=== PATIENT | female | born 1940 | race Caucasian/White ===

== ENCOUNTER → 2020-05-24 07:13 | Outpatient (CLI) | payer OTHER, SELFPAY ==
--- NOTE | ~2020-05-24 | XR_ITS ---
XR lumbar spine 2-3V DATE: 05/24/2020 07:37 INDICATION: Low back pain TECHNIQUE: AP, lateral, coned lateral lumbosacral views COMPARISON: None FINDINGS: There is moderate osteopenia. There is degenerative spurring of the lower thoracic spine. There is moderate degenerative disc disease at L1-2. There is moderately severe degenerative disc disease and mild retrolisthesis at L2-3. There is mild degenerative disc disease at L3-4, L4-5 and L5-S1. There is degenerative change at the apophyseal joints of the lumbar and lumbosacral area. There is as sociated minimal anterolisthesis at L4-5. No fracture or bone destruction is evident. The lumbar pedicles are intact. The sacroiliac joints are unremarkable. There are a couple of rounded calcifications overlying the right upper quadrant, consistent with gall stones demonstrated on 06/08/2012 CT abdomen examination. Surgical clips overlie both sides of the pelvis. There is extensive calcification of the abdominal aorta and iliac arteries; no evidence of abdominal aortic aneurysm. IMPRESSION: Degenerative changes of the lower thoracic and lumbar spine Moderate osteopenia Cholelithiasis Reviewed, dictated and finalized at location B. 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
== END ==
PROVIDERS: PCP Internal Medicine; Visit Provider Nurse Practitioner
DX: M85.88 Other specified disorders of bone density and structure, other site (principal); K80.20 Calculus of gallbladder without cholecystitis without obstruction; M51.36 Other intervertebral disc degeneration, lumbar region; M51.34 Other intervertebral disc degeneration, thoracic region
CPT/HCPCS: 72100

== ENCOUNTER 2020-06-26 10:30 | Outpatient (RCR) | payer OTHER, SELFPAY ==
--- NOTE | 2020-06-15 09:50 | PTOPEVAL ---
Thank you for referring Kerri Wilkes to [facility].? The patient is scheduled to be seen for therapy? 1 x/week for 8 weeks. Please review, sign, date and return this plan of care MILLICENT. I agree with and certify that the following plan of care is medically necessary. Referring Physician Date Attending Provider: YULIANA ZayasC Referring Provider: *PT Outpatient Evaluation Start: 06/15/20 08:24 Freq: Status: Active Protocol: Document 06/15/20 08:25 MARGARITA (Rec: 06/15/20 09:26 MARGARITA [id number]) Therapy Assessment Status Assessment Status Assessment Status Evaluation Outpatient Past Medical History Past Medical History Source of Past Medical History Patient,Recalled from Previous Visit, Confirmed with Patient /Family Cardiovascular History Hx Hypertension Yes Respiratory History Hx Asthma Yes Musculoskeletal History Hx Back Pain Yes Hx Fractures Yes: right tibia fracture- 7-8 yrs ago Endocrine History Hx Diabetes Yes Evaluation Information Problem Diagnosis low back pain Onset May 06 Cause unknown Subjective Information She reports her pain started Query Text:As Reported By Patient/ for no reason. She has had Family pain in the past and was improved with a shot. She was referred to ortho MD,but shot not performed due to back not painful on the day of her visit. Pt reports right low back pain with radiating symptoms into right hip. She was given muscle relaxors, but is unable to indicate if helping. She will have increased pain with walking, standing, lifting activities. States when things hurt every activity is painful and limited. But she is not always painful. Pain Assessment Timing of Pain Assessment Timing of Pain Assessment Assessment Pain Scale Pain Scale Used Numeric (1 - 10) Self Report Pain Assessment Right Lower Back Reported Pain Level 1 Pain Description Aching,Radiating,Tightness Pain Radiation Right Leg Pain Frequency Intermittent Lowest Pain Intensity
--- NOTE | 2020-07-09 09:19 | PCPTNOTE ---
Patient did not show up for scheduled appointment this date. Called spoke with patient and she stated she ws sorry, but, she forgot.
--- NOTE | 2020-07-25 14:26 | PCPTNOTE ---
Admitting Provider: Attending Provider: Cindy Arroyo, YULIANAC Patient:Kerri Wilkes Date of :1940 Discharge Note Patient has not returned for any further treatments since 06/26/2020, therefore she will be discharged at this time. Patient?s initial visit was on 06/15/2020 08:30 and she had a total of 3 visits. The goals have been no met due to limited therapy visits attended. Thank you for referring this patient to [facility]. Please review, sign, date and return this discharge summary MILLICENT. I have been updated about the patient's current status and I agree with discharge from the above service at this time. Referring Physician Date
== END 2020-07-25 14:43 | disposition home or self-care (01) ==
LOC: ANHPT 10:30
PROVIDERS: PCP Internal Medicine; Visit Provider Nurse Practitioner
DX: M54.5 Low back pain (principal)
CPT/HCPCS: 97110; 97112; 97140; 97162

== ENCOUNTER → 2021-04-08 10:08 | Outpatient (CLI) | payer OTHER, SELFPAY ==
--- NOTE | ~2021-04-08 | XR_ITS ---
XR sacrum coccyx min 2V DATE: 04/08/2021 10:28 INDICATION: Sacrococcygeal disorder TECHNIQUE: AP, angled AP and lateral views of the sacrococcyx COMPARISON: None FINDINGS: There is diffuse osteopenia. There is grade 1 anterolisthesis at L4-5 due to degenerative change at the apophyseal joints. The pubic symphysis and sacroiliac joints are intact. No sacral or coccygeal fracture or bone destruc tion is detected. There is prominent calcification of the distal abdominal aorta and common iliac arteries. IMPRESSION: Osteopenia Reviewed, dictated and finalized at location A. IMPRESSION: Osteopenia
== END ==
PROVIDERS: PCP Internal Medicine; Visit Provider Nurse Practitioner
DX: M53.3 Sacrococcygeal disorders, not elsewhere classified (principal); M85.88 Other specified disorders of bone density and structure, other site
CPT/HCPCS: 72220

== ENCOUNTER 2022-03-11 14:45 | Outpatient (CLI) | payer OTHER, SELFPAY ==
--- NOTE | ~2022-03-11 | MM_ITS ---
EXAMINATION: MM screening holly BI w tanja HISTORY: Screening mammogram TECHNIQUE: Craniocaudal and mediolateral oblique 3-D tomosynthesis images were obtained and synthetic 2-D images were generated. CAD analysis was submitted and interpreted. COMPARISON: , bilateral screening mammogram examinations BREAST PARENCHYMAL COMPOSITION: The breasts are almost entirely fatty. FINDINGS: There is no evidence of suspicious mass, calcification, or architectural distortion to sugg est malignancy in either breast. There has been no suspicious interval change. IMPRESSION: 1. No mammographic evidence of malignancy. 2. Recommend routine screening mammography in one year. BI-RADS Category 1: Negative Reviewed, dictated and finalized at location A.
== END 2022-03-11 14:46 | disposition home or self-care (01) ==
PROVIDERS: PCP Internal Medicine; Visit Provider Nurse Practitioner
DX: Z12.31 Encounter for screening mammogram for malignant neoplasm of breast (principal)
CPT/HCPCS: 77063; 77067

== ENCOUNTER 2024-01-28 12:17 | Outpatient (CLI) | payer OTHER, SELFPAY ==
--- NOTE | 2024-01-28 12:33 | ECHO_ITS ---
Patient Info Name: Kerri Wilkes Age: 84 years : 1940 Gender: Female Ht: 62 in Wt: 165 lbs BSA: 1.84 m2 HR: 85 bpm Heart Rhythm: Sinus Rhythm Technical Quality: Good Exam Date: 01/28/2024 12:47 PM Exam Location: Echo Lab Patient Status: Outpatient Admit Date: 01/28/2024 Staff Ordering Physician: Santi Ponce MD Data Transcriber: Aram Garcia RDCS Attending Provider: Santi Ponce MD Referring Physician: Kris LABOY; Exam Type: CA echo doppler color flow Study Info Indications - other chest pain Complete two-dimensional, color flow and Doppler transthoracic echocardiogram is performed. Summary 1. Complete two-dimensional, color flow and Doppler transthoracic echocardiogram is performed. 2. Left ventricular chamber dimension is normal. 3. Left ventricular systolic function is normal, estimated at 60-65%. 4. The left ventricular diastolic function is grade I diastolic dysfunction. 5. E/e' 17 is elevated. 6. Left atrial chamber dimension is mildly enlarged. 7. There is moderate aortic valve sclerosis. 8. There is moderate aortic valve stenosis with a peak velocity of 295 cm/s, mean gradient of 23 mmHg, and aortic valve area of 1.1 cm2. 9. The mitral valve has moderately calcified annulus. 10. There is trace mitral valve regurgitation. 11. No pulmonary hypertension, estimated pulmonary arterial systolic pressure is 32 mmHg. Left Ventricle E/e' 17 is elevated. Left ventricular chamber dimension is normal. Left ventricular systolic function is normal, estimated at 60-65%. The left ventricular diastolic function is grade I diastolic dysfunction. Right Ventricle Right ventricular systolic function is normal and with normal TAPSE 2.7 cm. Right ventricular chamber dimension is normal. Left Atria Left atrial chamber dimension is mildly enlarged. Right Atria Right atrial chamber dimension is normal. Aortic Valve The aortic valve is not well visualized. There is moderate aortic valve sclerosis. There is moderate aortic valve stenosis with a peak velocity of 295 cm/s, mean gradient of 23 mmHg, and aortic valve area of 1.1 cm2. There is no aortic valve regurgitation. Pulmonic Valve There is no pulmonic regurgitation. Mitral Valve The mitral valve has moderately calcified annulus. There is no mitral valve stenosis. There is trace mitral valve regurgitation. Tricuspid Valve There is no tricuspid valve regurgitation. No pulmonary hypertension, estimated pulmonary arterial systolic pressure is 32 mmHg. Pericardium/Pleural There is no pericardial effusion. Inferior Vena Cava Normal inferior vena cava with >50% collapse upon inspiration consistent with normal right atrial pressure, 5 mmHg. Aorta The aortic root size at the sinus of Valsalva is normal. Left Ventricular Outflow Tract Name Value Normal LVOT 2D LVOT Diameter 1.7 cm LVOT Doppler LVOT Peak Gradient 6 mmHg LVOT Mean Gradient 3 mmHg LVOT VTI 42 cm LVOT VTI/AV VTI Ratio 0.5 LVOT Stroke Volume 92 ml LVOT CO 7.9 l/min LVOT CI
== END 2024-01-28 12:18 | disposition home or self-care (01) ==
PROVIDERS: PCP Family Medicine; Visit Provider Family Medicine
DX: R07.89 Other chest pain (principal); I35.8 Other nonrheumatic aortic valve disorders
CPT/HCPCS: 93306

== ENCOUNTER 2025-03-02 07:14 | Outpatient (CLI) | payer OTHER, SELFPAY ==
--- NOTE | 2025-03-02 07:59 | ECHO_ITS ---
Patient Info Name: Kerri Wilkes Age: 85 years : 1940 Gender: Female Ht: 62 in Wt: 160 lbs BSA: 1.81 m2 HR: 59 bpm BP: 132 / 72 mmHg Technical Quality: Good Exam Date: 03/02/2025 8:18 AM Patient Status: O Admit Date: 03/02/2025 Exam Type: CA echo dop color flow w con Complete two-dimensional, color flow and Doppler transthoracic echocardiogram is performed with contrast to opacify the left ventricle and to improve the deliniation of the left ventricle endocardial borders. Family Readiness Support Assistant: Joanna Arnold Attending Provider: Aly Zhou DO Contrast/Agitated Saline Contrast/Ag. Saline: Definity Amount: 2.00 ml Administered By: Joanna Arnold Summary 1. Definity contrast administered improved wall motion interpretation. 2. Left ventricular chamber dimension is mildly enlarged. 3. Left ventricular systolic function is normal, estimated at 55-60. 4. The left ventricular diastolic function is grade I diastolic dysfunction. 5. E/e' 18 is elevated. 6. Left atrial chamber dimension is moderately enlarged. 7. There is severe aortic valve sclerosis. 8. There is severe aortic valve stenosis with a peak velocity of 421 cm/s, mean gradient of 42 mmHg, and aortic valve area of 0.8 cm2. 9. The mitral valve has a moderately calcified annulus. 10. There is mild to moderate mitral valve regurgitation. 11. There is trace tricuspid valve regurgitation. 12. No pulmonary hypertension, estimated pulmonary arterial systolic pressure is 31 mmHg. 13. There is trace pulmonic regurgitation. Left Ventricle Definity contrast administered improved wall motion interpretation. Left ventricular chamber dimension is mildly enlarged. Left ventricular systolic function is normal, estimated at 55-60. The left ventricular diastolic function is grade I diastolic dysfunction. E/e' 18 is elevated. Right Ventricle Right ventricular chamber dimension is normal. Right ventricular systolic function is normal and with normal TAPSE 2.0 cm. Left Atria Left atrial chamber dimension is moderately enlarged. Right Atria Right atrial chamber dimension is normal. Aortic Valve The aortic valve is probable trileaflet. There is severe aortic valve sclerosis. There is severe aortic valve stenosis with a peak velocity of 421 cm/s, mean gradient of 42 mmHg, and aortic valve area of 0.8 cm2. There is no aortic valve regurgitation. Pulmonic Valve There is trace pulmonic regurgitation. Mitral Valve The mitral valve has a moderately calcified annulus. There is no mitral valve stenosis. There is mild to moderate mitral valve regurgitation. Tricuspid Valve There is trace tricuspid valve regurgitation. No pulmonary hypertension, estimated pulmonary arterial systolic pressure is 31 mmHg. Pericardium/Pleural There is no pericardial effusion. Inferior Vena Cava Normal inferior vena cava with >50% collapse upon inspiration consistent with normal right atrial pressure, 5 mmHg. Aorta The aortic root size at the sinus of Valsalva is normal. Left Ventricular Outflow Tract Name Value Normal LVOT 2D LVOT Diameter 1.8 cm LVOT Doppler LVOT Peak Velocity 125 cm/s LVOT Peak Gradient 6 mmHg LVOT Mean Gradient 4 mmHg LVOT VTI 36 cm LVOT VTI/AV VTI Ratio 0.3 LVOT Stroke Volume 97 ml LVOT CO 6.1 l/min LVOT CI 3.4 l/min/m2 Pulmonic Valve Name Value Normal RVOT Doppler RVOT Peak Velocity 93 cm/s RVOT Peak Gradient 3 mmHg PV Doppler PV Peak Velocity 147 cm/s PV Peak Gradient 9 mmHg Mitral Valve Name Value Normal MV Diastolic Function MV E Peak Velocity 110 cm/s MV A Peak Velocity 151 cm/s MV E/A 0.7 MV Decel Time (PW) 348 ms MV Annular TDI MV E/e' (Septal) 20.9 MV E/e' (Lateral) 16.4 MV E/e' (Average) 18.6 Tricuspid Valve Name Value Normal TV Regurgitation Doppler TR Peak Velocity 254 cm/s TR Peak Gradient 26 mmHg Estimated PAP/RSVP RA Pressure 5 mmHg <=5 PA Systolic Pressure 31 mmHg <36 RV Systolic Pressure 31 mmHg <36 Aortic Valve Name Value Normal AV Doppler AV Peak Velocity 421 cm/s AV Peak Gradient 67 mmHg AV Mean Gradient 42 mmHg AV VTI 118 cm AV Area (Cont Eq VTI) 0.8 cm2 >=3.0 AV Area (Cont Eq Narayan) 0.8 cm2 AV DI (Narayan) 0.30 AV Regurgitation 2D LVOT Area 2.7 cm2 Ventricles Name Value Normal LV Dimensions 2D/MM IVS Diastolic Thickness (2D) 0.9 cm 0.6-1.0 LVID Diastole (2D) 5.3 cm 3.8-5.2 LVIW Diastolic Thickness (2D) 0.8 cm 0.6-0.9 LVID Systole (2D) 3.9 cm 2.2-3.5 LVOT Diameter 1.8 cm LV Mass (2D Cubed) 149.77 g 67.00-162.00 LV Mass Index (2D Cubed) 83 g/m2 43-95 Relative Wall Thickness (2D) 0.28 <=0.42 LV Fractional Shortening/Ejection Fraction 2D/MM LV Fractional Shortening (2D) 27 % 27-45 LV EF (2D Teichholz) 52 % LV Diastolic Volume (4C MOD) 121 ml LV EF (4C MOD) 48 % LV Diastolic Volume (2C MOD) 131 ml LV EF (2C MOD) 57 % LV Diastolic Volume (BP MOD) 128 ml 46-106 LV Diastolic Volume Index (BP MOD) 71 ml/m2 29-61 LV Systolic Volume (BP MOD) 60 ml 14-42 LV Systolic Volume Index (BP MOD) 33 ml/m2 8-24 LV EF (BP MOD) 53 % 54-74 LV Diastolic Length (4C) 8.0 cm LV Systolic Length (4C) 7.1 cm LV Stroke Volume (4C MOD) 58 ml Atria Name Value Normal LA Dimensions LA Volume (4C A-L) 69 ml LA Volume (BP A-L) 69 ml RA Dimensions RA Systolic Major Davenport Length (4C) 5.4 cm 2.2-2.8 RA Area (4C) 16.9 cm2 <=18.0 Report Signatures
[2025-03-02] MEDS: PERFLUTREN LIPID MICROSPHERES 1.5 ML VIAL DILUTED TO 10 ML TOTAL VOLUME IV PUSH (09:30)
--- NOTE | 2025-03-02 09:30 | IVDEFINITY ---
Prior to administration of IV Definity the patient was educated on the risks and benefits of the imaging enhancing agent including potential adverse side effects. The patient verbalized understanding. Allergies were verified. No exclusion criteria were identified and at least one of the following inclusion criteria were met: 1) physician request, 2) patient technically difficult to image (per the [place] [employer]chocardi[employer] guidelines of two or more segments not discernable within the apical view), or 3) questionable left ventricular function. ?
== END 2025-03-02 07:15 | disposition home or self-care (01) ==
PROVIDERS: PCP Family Medicine; Visit Provider Internal Medicine Cardiovascular Disease
DX: I35.0 Nonrheumatic aortic (valve) stenosis (principal); I34.0 Nonrheumatic mitral (valve) insufficiency; I35.1 Nonrheumatic aortic (valve) insufficiency
CPT/HCPCS: C8929; Q9957

== ENCOUNTER 2025-03-21 00:26 | Day surgery (SDC) | payer OTHER, SELFPAY ==
[2025-03-20 12:59] VITALS: BMI 28.4
[2025-03-21] VITALS (8 sets, daily range): BP systolic 122–179; BP diastolic 52–92; PULSE 67–98; RESP 14–21; TEMP 36.4; O2SAT 96–100
--- NOTE | 2025-03-21 | ECHO_ITS ---
Patient Info Name: Kerri Wilkes Age: 85 years : 1940 Gender: Female Ht: 62 in Wt: 155 lbs BSA: 1.78 m2 Technical Quality: Good Exam Date: 03/21/2025 7:58 AM Patient Status: unknown Admit Date: 03/21/2025 Exam Type: CA echo transesophageal Complete two-dimensional, color flow and Doppler transesophageal study is performed. Stripper Apprentice: Olga Brito Attending Provider: Aly Zhou DO Summary 1. Left ventricular systolic function is normal with an ejection fraction of 60-65% by visual estimation. 2. There is moderate concentric increased left ventricular wall thickness. 3. The left ventricular diastolic function is indeterminate as it was not assessed. 4. Left atrial chamber dimension is moderately enlarged. 5. There is severe aortic valve sclerosis. 6. There is severe aortic valve stenosis, measured at 0.7 cm2 by planimetry. 7. There is mild mitral valve regurgitation. 8. There is trace tricuspid valve regurgitation. 9. There is trace pulmonic regurgitation. Procedure Details Risks/benefits/alternative to SHUN discuss with patient and she gave informed consent. Patient monitored electrocardiographically, vitals, pulse ox. She was in sinus rhythm, HR 70 bpm, BP 130/80 mmHg, pulse ox 99%. Cetacaine spray x 1 to posterior oropharynx. Versed 2 mg and Fentanyl 25 mcg IV given for conscious sedation. She swallowed probe without incident. Multiple images obtained. Agitated saline injection. SHUN withdrawn and no blood noted on SHUN probe tip. She tolerated procedure well with no complications. Left Ventricle Left ventricular chamber dimension is normal. There is moderate concentric increased left ventricular wall thickness. Left ventricular systolic function is normal with an ejection fraction of 60-65% by visual estimation. The left ventricular diastolic function is indeterminate as it was not assessed. Right Ventricle Right ventricular chamber dimension is normal. Right ventricular systolic function is normal. Left Atria Left atrial chamber dimension is moderately enlarged. Right Atria Right atrial chamber dimension is normal. Atrial Septum Intact interatrial septum visualized by 2D, color flow and agitated saline imaging. Agitated saline injection opacified right side cardiac chambers without shunt to left side cardiac chambers. Atrial Appendage There is no thrombus visualized in the left atrial appendage. Aortic Valve The aortic valve is trileaflet. There is severe aortic valve sclerosis. There is severe aortic valve stenosis, measured at 0.7 cm2 by planimetry. There is no aortic valve regurgitation. Pulmonic Valve There is trace pulmonic regurgitation. Mitral Valve There is no mitral valve stenosis. There is mild mitral valve regurgitation. Tricuspid Valve There is trace tricuspid valve regurgitation. RVSP is not measured. Pericardium/Pleural There is no pericardial effusion. Inferior Vena Cava Inferior vena cava is not well visualized. Aorta The aortic root size at the sinus of Valsalva is normal. Report Signatures
[2025-03-21] MEDS: fentaNYL CITRATE INJ (*CRX) 100 MCG/2 ML VIAL 25 MCG IV PUSH (08:10)
[2025-03-21] MEDS: MIDAZOLAM HCL (*CRX) 2 MG/2 ML VIAL IV PUSH (08:10)
== END 2025-03-21 09:15 | disposition home or self-care (01) ==
PROVIDERS: PCP Family Medicine; Visit Provider Internal Medicine Cardiovascular Disease
PROC: (CPT 93312; principal; 2025-03-21 08:00)
DX: I35.0 Nonrheumatic aortic (valve) stenosis (principal); I35.8 Other nonrheumatic aortic valve disorders; I34.0 Nonrheumatic mitral (valve) insufficiency; E11.9 Type 2 diabetes mellitus without complications; I10 Essential (primary) hypertension; E78.5 Hyperlipidemia, unspecified; Z79.82 Long term (current) use of aspirin; Z79.51 Long term (current) use of inhaled steroids; Z79.84 Long term (current) use of oral hypoglycemic drugs; Z87.891 Personal history of nicotine dependence; Z80.0 Family history of malignant neoplasm of digestive organs; Z82.49 Family history of ischemic heart disease and other diseases of the circulatory system
CPT/HCPCS: 93312; 93320; 93325; J2250; J3010; J7040

== ENCOUNTER 2025-03-27 00:56 | Day surgery (SDC) | payer OTHER, SELFPAY ==
--- OUTSIDE RECORDS SUMMARY | 2009-11-20 09:00 | XMS_ITS | Continuity of Care Document ---
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 Name Role Phone Heather Taylor Unavailable Unavailable Procedures Procedure Date Office/outpatient Visit, Est Office/outpatient Visit, Est Eye Exam & Treatment Eye Exam & Treatment Advance Directives Directive Yes / No Effective Date File Name No Information Encounters Encounter Description Practice Location Reason(s) For Visit Diagnoses Date Provider Providers Copied on Encounter Office/outpat ient Visit, [facility] [address] [place] [address] [address], [place], [place], [id number], tel:[phone] [facility] No Information 8-201 0 Claudia Sheridan [address] , [address], [place], [place], [facility], . tel:[phone] Office/outpat ient Visit, [facility], [address] [place] [address] [address], [place], [place], [id number], [place] tel:[phone] [facility] No Information 7200 9 Claudia Sheridan [address] , [address], [place], [place], [facility], . tel:[phone] [facility], [address] [place] [address] [address], [place], [place], [id number], tel:[phone] [facility] No Information Mar-2 1-200 8 Claudia Romero. [address] , [address], [place], [address], [place]. tel:[phone] [facility], [address], [place], [place], [id number], [place] tel:[phone] [facility] No Information Sep-2 0-200 7 Clauida Romero. [address] [facility] , [address], [place], [address], [place]. tel:[phone] Family History Family Member Type Diagnosis Age At Onset No Information Payers Payer name Insurance type Covered green party ID Authoriza trini(s) [employer] [id number] Written Social History Type Description Quantity Date Captured Comments Sex Female Smoking Status No Information Chief Complaint And Reason For Visit No Information Reason For Referral Reason For Referral No Information History Of Present Illness Encounter Date Complaint History Of Prese nt Illness No Information Functional Status Date Functional Assessmen t No Information Instructions Date Instruction Additional Infor mation No Information Assessments Type Assessment Date No Information Patient Care Teams Name Effective Dates (start - stop) Status Members No Information
[2025-03-24 14:41] VITALS: BMI 28.2
[2025-03-27] VITALS (12 sets, daily range): BP systolic 136–169; BP diastolic 59–94; PULSE 54–72; RESP 13–19; TEMP 36.7; O2SAT 94–99; BMI 28.2
--- OUTSIDE RECORDS SUMMARY | 2025-03-27 00:59 | XMS_ITS | Clinical Summary ---
Author Organization 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 Role Phone Unavailable Primary Care Provider Unavailabl e Social History Tobacco Use Types Packs/Day Years Used Date Smoking Tobacco: Never Assessed Comments Unknown Sex and Gender Information Value Date Recorded Sex Assigned at Not on file Legal Sex Female 7:04 PM CDT Gender Identity Not on file Sexual Orientation Not on file Plan of Treatment Health Maintenance Due Date Last Done Comments DTaP, Tdap and Td Vaccines ( 1 - Tdap) 1959 Pneumococcal Vaccine: 50+ Ye ars (1 of 1 - PCV) 01/16/1988 Zoster Vaccines (1 of 2) 01/16/1988 RSV Immunization or 60+ Years (1 - 1-dose 75+ series) 2013 COVID-19 Vaccine ( - 2023-2 5 season) 2025 Meningococcal B Vaccine Aged Out No l onger eligible based on patient's age to complete this topic Meningococcal Vaccine Aged Out No keila tiarra eligible based on patient's age to complete this topic RSV Immunizations Under 20 Months Aged Out No longer eligible based on patient's age to complete this topic
--- OUTSIDE RECORDS SUMMARY | 2025-03-27 00:59 | XMS_ITS | Clinical Summary ---
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 Gender Identity Not on file Sexual Orientation Not on file Plan of Treatment Health Maintenance Due Date Last Done Comments Hepatitis C Virus (HCV) Screening 1940 TdaP Immunization 1940 Pneumococcal Immunization (50+ years) (1 of 1 - PCV) 01/16/1988 Zoster Immunization (1 of 2) 01/16/1988 Respiratory Syncytial Virus (RSV) Immunization (Adult) (1 - 1-dose 75+ series) 2013 SARS-COV-2 Immunization ( - season) 2024 Influenza Immunization (#1) 03/06/202511/2019, 04/11/2019, 04/07/2018, Additional history exists Hepatitis B Immunization Aged Out No longer eligible based on patient's age to complete this topic Human Papillomavirus (HPV) Immunization Aged Out No longer eligible based on patient's age to complete this topic Meningococcal Immunization (ACWY) Aged Out No longer eligible based on patient's age to complete this topic Rotavirus Immunization Aged Out No lo nger eligible based on patient's age to complete this topic
[2025-03-27 08:43] LABS: Hematocrit 41.2 % (37.0-47.0); Hemoglobin 13.3 g/dL (12.0-15.0); Immature Granulocyte Percent A 0.5 % (0-0.5); Lymphocytes Absolute Auto 1.43 K/mm3 (0.9-3.2); Mean Corpuscular HGB Conc 32.3 g/dl (32-36); Mean Corpuscular Hemoglobin 29.2 pg (26-34); Mean Corpuscular Volume 90.5 fl (80-100); Nucleated Red Blood Cells Absolute Auto 0.000 K/mm3 (0.0-0.012); Nucleated Red Blood Cells Perc 0.0 % (0.0-0.2); Platelet Count Result 223 k/mm3 (150-375); Red Blood Count 4.55 M/mm3 (4.2-5.4); White Blood Count 7.5 K/mm3 (4.5-10.0)
--- NOTE | 2025-03-27 08:48 | WPDHPUPDATE1 ---
History and Physical Update Update Date/Time: 03/27/25 08:48 History and Physical has been reviewed, including an updated exam of the patient. There are NO changes in the patient's condition. Risks, benefits, and alternatives have been discussed and questions answered. Patient agrees to proceed with procedure.
--- NOTE | 2025-03-27 08:48 | WPDMODSED ---
Moderate Sedation Note-Pt Data Patient Data Allergies Allergy/AdvReac Type Severity Reaction Status Date / Time niacin Allergy Unknown Rash Verified 03/27/25 08:22 Penicillins Allergy Unknown Hives Verified 03/27/25 08:22 Home Medications ?Medication ?Instructions ?Recorded ?Confirmed ?Type blood sugar diagnostic (OneTouch #25 ea 04/25/22 03/07/25 Rx Verio test strips) blood-glucose meter (Contour Next #1 ea 05/14/22 03/07/25 Rx EZ Meter kit) aspirin 325 mg tablet 325 mg PO DAILY 12/11/22 03/27/25 History diphenhydramine HCl 25 mg capsule 25 mg PO QHS 12/11/22 03/27/25 History (Benadryl) triamcinolone acetonide 0.1 % 1 applic topical BID #454 grams 10/12/23 03/27/25 Rx topical cream albuterol sulfate 90 mcg/actuation See Rx Instructions .Route 02/12/24 03/27/25 Rx aerosol inhaler .COMPLEX #6.7 ea ezetimibe 10 mg tablet See Rx Instructions .Route 10/18/24 03/27/25 Rx .COMPLEX #90 tabs blood sugar diagnostic (Contour #50 ea 10/31/24 03/07/25 Rx Next Test Strips) tizanidine 4 mg tablet See Rx Instructions .Route 01/06/25 03/27/25 Rx .COMPLEX #90 tabs lisinopril 20 See Rx Instructions .Route 01/08/25 03/27/25 Rx mg-hydrochlorothiazide 12.5 mg .COMPLEX #90 tabs tablet diltiazem HCl 180 mg See Rx Instructions .Route 03/21/25 Rx capsule,extended release 24 hr .COMPLEX #90 caps metformin 1,000 mg tablet See Rx Instructions .Route 03/21/25 03/27/25 Rx .COMPLEX #90 tabs montelukast 10 mg tablet See Rx Instructions .Route 03/21/25 03/27/25 Rx .COMPLEX #90 tabs potassium chloride 10 mEq See Rx Instructions .Route 03/21/25 03/27/25 Rx tablet,extended release .COMPLEX #180 tabs Sedation/Anesthesia: No previous sedation/anesthesia problems (including family history). [facility] Past Medical History Medical History Postmenopausal Screening for breast cancer Weight loss Family History Family History Mother Hypertension, Onset Age: 75 Family history of gastrointestinal disorder Patient's mother is Cerebrovascular accident Sibling Carcinoma of colon Family history of coronary artery disease, Onset Age: 70 Patient's sister is Family history of cardiovascular disease Family history of malignant neoplasm Family history of heart disease in male family member before age 55 Patient's brother is Father Patient's father is Family history of malignant neoplasm Other Diabetes mellitus Family history of lupus erythematosus Social History Social History Smoking packs per day: 1 Smoking cigarettes per day: 20.0 Years smoked: 20 Smoking pack-years: 20.00 Smoking status: Former smoker Tobacco type: cigarettes Second hand tobacco smoke exposure: No Smoking end date: 07/06/84 Alcohol intake: never Substance use: unknown Substance use type: does not use Lack of Transportation: No Lack of Food: Never True Current Housing: I Have Housing Concerned About Future Housing: No Difficulty Paying Gas/Electric Bills: No Difficulty Paying for Meds: No Currently Unemployed: No Education: High School Diploma/GED Difficulty w/ Childcare or Family Care: No Living arrangements: alone Occupation/Education: retired Gender identity (if verbalized by the patient): Female Sexual Orientation (if Verbalized by the Patient): Straight or Heterosexual Spiritual care concerns: No Mod Sed Physical Exam Physical Exam Pre Procedural Exam: Normal: Lungs, Heart Size, Heart Rate and Heart Rhythm Hours since solid foods: 12 Hours since liquid intake: 12 Mallampati Classification: class II Internal Medicine - PN: Obj Da Vital Signs Vital Signs: Vital Signs - 24 hr 03/27/25 08:28 Temperature 36.7 C Pulse Rate 70 Respiratory Rate 18 Blood Pressure 161/61 H Pulse Oximetry 96 Oxygen Delivery Room Air Labs 03/27/25 08:34 03/27/25 08:34 ASA Classification/Sedation ASA Classification/Sedation ASA Class: III Emergent: No Risks: Risks, benefits and alternatives explained and patient/family accepted plan for sedation. Patient re-evaluated immediately prior to sedation.
[2025-03-27 08:56] LABS: Anion Gap 6 mmol/L (4-12); Blood Urea Nitrogen 12 mg/dL (7-17); Calcium 9.7 mg/dL (8.4-10.2); Carbon Dioxide 26 mmol/L (22-30); Chloride 102 mmol/L (98-107); Estimated CRCL calculation 33 ml/min; Estimated Glomerular Filt Rate 55; Glucose 91 mg/dL (65-110); Potassium 4.4 mmol/L (3.4-5.0); Sodium 134 mmol/L (137-145)
--- NOTE | 2025-03-27 10:45 | P.PCNCC_ITS ---
Cardiac Cath Procedure Note Date of procedure:: 03/27/25 Performing physician:: CATHETERIZATION LABORATORY REPORT Procedure Date: 03/27/2025 Referring Physician: Dr. Zhou Anesthesia: Versed and Fentanyl were ordered and given in my presence at 1007, procedure ended at 1036. Supervision of nurse, Romero Dickson monitored moderate sedation with 2mg Versed and 100mcg Fentanyl was provided for 29 minutes. Pre-op Diagnosis: Severe aortic stenosis Post-op Diagnosis: Severe aortic stenosis Procedure(s): Left heart catheterization with coronary angiography Right heart catheterization Access Site: Right radial artery Right Brachial vein Brief History and Clinical Indications: All risks, benefits and alternatives to left heart catheterization with or without percutaneous coronary intervention was discussed at length with the patient. Risk of complications including but not limited to bleeding, infection, arrhythmia, stroke, worsening kidney function, blood loss, groin hematoma, limb loss, emergency coronary artery bypass grafting, and even were discussed with the patient and all questions were answered. The patient understood and wished to proceed. 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 Findings: LEFT HEART CATHETERIZATION FINDINGS: 1. Left main: The left main coronary artery is widely patent without any significant obstructive disease. 2. Left anterior descending: The LAD and the diagonal branch (moderate caliber vessel that supplies same amount of territory as the LAD itself) have mild luminal irregularities without any significant obstructive angiographic disease. 3. Left circumflex: The left circumflex artery and the main marginal branches have mild luminal irregularities without any significant obstructive angiographic disease. 4. Right coronary artery: The RCA is a very large dominant system with luminal irregularities. The vessel itself is at least 5 mm in diameter. 5. Left ventricle: A. End-diastolic pressure 8mmHg. B. LV gram deferred. C. Mean gradient of 40 mm Hg with calculated aortic valve area of 0.8cm2 6. Opening AO pressure 132/55 and closing AO pressure 120/68 Description of Procedure: Informed consent signed and placed in the chart. Patient transferred to cork slabs sawyer room. Prepped and draped in usual sterile fashion. 2% lidocaine injected subcutaneously in right brachial area. Right brachial vein was accessed using micropuncture technique under ultrasound guidance. 6F sheath placed and exchanged for 7 Turkish sheath under fluoroscopy. 7F Capron- Jose catheter was advanced into the right side of the heart chambers and pressures were measured. Hemostasis was achieved by manual pressure. 2% lidocaine injected subcutaneously in right wrist area. 22-gauge venipuncture catheter used to access the right radial artery with the Seldinger technique. 6- FR slender sheath placed in right radial artery. Verapamil 2.5mg, and Heparin 5000U was given intraarterial through the sheath. J wire advanced under fluoroscopy 5F Ultra diagnostic catheter was used to cross the aortic valve with a straight wire. After pull back complete, the catheter engaged Left Main Coronary Artery and Right Coronary Artery. Multiple orthogonal angiogram obtained and reviewed Hemostasis was achieved by application of TR band. Assessment: Severe aortic stenosis. Nonobstructive coronary artery disease. Post Operative Condition: Stable No significant blood loss Disposition: Home Plan: The above findings were discussed with the referring physician. Continue aggressive medical therapy and risk factor modification. Complete TAVR evaluation. [facility]
== END 2025-03-27 14:15 | disposition home or self-care (01) ==
PROVIDERS: PCP Family Medicine; Visit Provider Internal Medicine
PROC: 4A023N8 Measurement of Cardiac Sampling and Pressure, Bilateral, Percutaneous Approach (ICD-10-PCS; CPT 93453; principal; 2025-03-27 10:00)
DX: I35.0 Nonrheumatic aortic (valve) stenosis (principal); I25.10 Atherosclerotic heart disease of native coronary artery without angina pectoris; Z87.891 Personal history of nicotine dependence
CPT/HCPCS: 36415; 80048; 85025; 93460; C1769; C1887; C1894; J1644; J2003; J2250; J2305; J3010; J7040

== ENCOUNTER 2025-06-28 16:05 | Emergency (ER) | payer OTHER, SELFPAY ==
--- NOTE | ~2025-06-28 | CT_ITS ---
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 Chest and abdomen pain. TECHNIQUE: Computed tomography (CT) of the chest, abdomen, and pelvis was performed with intravenous contrast. The dose-length product was 1070.70 mGy-cm. COMPARISON: CT dated 06/08/2012 FINDINGS: CHEST CT: No significant vascular abnormality. No evidence for aortic aneurysm or dissection. Heart size normal. No thoracic lymphadenopathy. 2.1 cm hypodense mass left thyroid lobe. Correlation with thyroid ultrasound recommended for further assessment on nonemergent basis. There are small bilateral pulmonary n odules measuring 4 mm or less, likely benign. No pneumothorax. No significant pleural or pericardial effusion. Moderate thoracic spondylosis. No focal lytic or blastic lesions. There is a prosthetic aortic valve. ABDOMEN/PELVIS CT: Gallstones. The liver, spleen, pancreas, adrenal glands and are unremarkable. Colonic diverticulosis without evidence for diverticulitis. No free air or free fluid. No lymphadenopathy. There are bilateral renal cysts. Severe lumbar spondylosis. Grade 1 degenerative spondylolisthesis at L4-5. IMPRESSION: 1. No acute abnormality of the chest, abdomen or pelvis. 2: Small bilateral pulmonary nodules measuring 4 mm or less, likely benign. Recommend follow-up low dose CT chest in 12 months. 3: Left thyroid mass measuring 2.1 cm, indeterminate. Correlation with ultrasound recommended on a nonemergent basis. 4: Cholelithiasis. Reviewed, dictated and finalized at location O. LOADER IMPRESSION: 1. No acute abnormality of the chest, abdomen or pelvis. 2: Small bilateral pulmonary nodules measuring 4 mm or less, likely benign. Rec ommend follow-up low dose CT chest in 12 months. 3: Left thyroid mass measuring 2.1 cm, indeterminate. Correlation with ultraso und recommended on a nonemergent basis. 4: Cholelithiasis.
--- NOTE | ~2025-06-28 | XR_ITS ---
[id number] 06/28/2025 17:40 Indication: Left knee pain Procedure: 2 views left knee Comparison: No prior studies for comparison. Findings: Large amount of prepatellar and infrapatellar soft tissue swelling. Mild tricompartment osteoarthritis. There is chondrocalcinosis. Osteopenia. No acute fracture or traumatic malalignment. Impression: 1: No acute fracture. Reviewed, dictated and finalized at location O. GER ASSET MANAGEMENT Impression: 1: No acute fracture.
--- NOTE | ~2025-06-28 | XR_ITS ---
XR elbow RT 2V 06/28/2025 17:40 INDICATION: Right elbow pain after fall PROCEDURE: 2 views right elbow COMPARISON: No prior studies for comparison. FINDINGS: Study limited due to rotation. 2 nonstandard views submitted. Fracture, dislocation or subluxation is not identified. The soft tissues appear within normal limits. No foreign bodies are identified. IMPRESSION: 1: NO ACUTE BONE OR JOINT ABNORMALITY IDENTIFIED. Reviewed, dictated and finalized at location O. L DIE PRINTER
--- NOTE | ~2025-06-28 | CT_ITS ---
EXAMINATION: CT brain wo con DATE: 06/28/2025 17:18 INDICATION: Status post fall. TECHNIQUE: Computed tomography (CT) of the head was performed without intravenous contrast. The dose-length product was 605.33 mGy-cm. Automated exposure control and iterative reconstruction technique were employed. COMPARISON: None FINDINGS: Large frontal scalp hematoma. Curvilinear calcification present right middle cranial fossa, suspicious for aneurysm of the middle cerebral artery. No acute intracranial hemorrhage, infarction, mass or mass effect. Basilar cisterns are patent. Paranasal sinuses and mastoids are pneumatized. No depressed skull fractures. IMPRESSION: 1. No acute intracranial abnormality. 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 Recommend correlation with MRA of the brain. 3: Large frontal scalp hematoma. Reviewed, dictated and finalized at location O. 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
--- NOTE | ~2025-06-28 | CT_ITS ---
EXAMINATION: CT facial & cervical spine wo DATE: 06/28/2025 17:18 INDICATION: Trauma TECHNIQUE: Computed tomography (CT) of the maxillofacial region and cervical spine was performed without intravenous contrast. The dose-length product (DLP) was 294.67 mGy-cm. Automated exposure control and iterative reconstruction technique were employed. COMPARISON: None FINDINGS: MAXILLOFACIAL CT: No acute fracture. There is frontal scalp hematoma. There is carotid atherosclerosis. Rightward nasal septal deviation. Ostiomeatal units are patent. There are bilateral myriam bullosa. There are degenerative changes of the temporomandibular joints. CERVICAL SPINE CT: No acute fracture. Craniovertebral junction within normal limits. Mild multilevel spondylosis. Odontoid process is normal. No evidence for perched facet. There is multilevel uncinate and facet hypertrophy. Lung apices are normal. IMPRESSION: 1. No acute fracture. Reviewed, dictated and finalized at location O. INSTRUCTIONAL ASSISTANT IMPRESSION: 1. No acute fracture.
--- NOTE | ~2025-06-28 | XR_ITS ---
XR shoulder RT min 2V, XR humerus RT 06/28/2025 17:40 Indication: Right shoulder pain after fall Procedure: 2 views right shoulder and 2 views right humerus Comparison: No prior studies for comparison. Findings: Displaced comminuted right humeral neck/head fracture with anterior dislocation. Glenoid process is grossly unremarkable. Surrounding osseous structures are unremarkable. Acromioclavicular joint and anatomic alignment. Impression: 1: Displaced, comminuted right humeral neck/head fracture with anterior dislocation. Reviewed, dictated and finalized at location O. [employer] Impression: 1: Displaced, comminuted right humeral neck/head fracture with anterior disloca tion. Impression: 1: Displaced, comminuted right humeral neck/head fracture with anterior disloca tion.
[2025-06-28 16:07] VITALS: BP 178/126; PULSE 92; RESP 16; TEMP 36.7; O2SAT 99
[2025-06-28] MEDS: MORPHINE SULFATE (*CRX) 4 MG/ML INJ IV PUSH (16:20)
[2025-06-28] MEDS: ONDANSETRON INJ 4 MG/2 ML VIAL IV PUSH (16:36)
[2025-06-28] MEDS: HYDROmorphone HCL INJ (*CRX) 1 MG/ML SYR 0.5 MG IV PUSH ×4 (16:36→21:07)
--- NOTE | 2025-06-28 16:39 | ED.GENADULT ---
HPI - General Adult General Chief complaint: Fall Stated complaint: fall Time Seen by Provider: 06/28/25 16:18 History of Present Illness HPI narrative: 85-year-old female presents emergency department for evaluation for injury sustained from a ground level fall. Patient states she stumbled while walking. Patient does complain of head pain left knee pain and right shoulder pain. Patient does have multiple areas of ecchymosis and patient is in significant distress upon arrival to the emergency department. Patient does take Plavix and aspirin. Related Data Home Medications ?Medication ?Instructions ?Recorded ?Confirmed ?Last Taken ?Type diphenhydramine HCl 25 mg capsule 25 mg PO QHS 12/11/22 06/19/25 03/26/25 History (Benadryl) clopidogrel 75 mg tablet (Plavix) 75 mg PO DAILY 05/26/25 06/19/25 Unknown History aspirin 325 mg tablet 10 mg PO DAILY 06/19/25 06/19/25 Unknown History Allergies Allergy/AdvReac Type Severity Reaction Status Date / Time niacin Allergy Unknown Rash Verified 06/28/25 16:10 Penicillins Allergy Unknown Hives Verified 06/28/25 16:10 Review of Systems Review of Systems: All systems reviewed & are unremarkable except as noted in HPI and below PMFSH Past Medical History Medical History Postmenopausal Screening for breast cancer Weight loss Family History Family History Mother Hypertension, Onset Age: 75 Family history of gastrointestinal disorder Patient's mother is Cerebrovascular accident Sibling Carcinoma of colon Family history of coronary artery disease, Onset Age: 70 Patient's sister is Family history of cardiovascular disease Family history of malignant neoplasm Family history of heart disease in male family member before age 55 Patient's brother is Father Patient's father is Family history of malignant neoplasm Other Diabetes mellitus Family history of lupus erythematosus Social History Social History Smoking packs per day: 1 Smoking cigarettes per day: 20.0 Years smoked: 20 Smoking pack-years: 20.00 Smoking status: Former smoker Tobacco type: cigarettes Second hand tobacco smoke exposure: No Smoking end date: 07/06/84 Alcohol intake: never Substance use: unknown Substance use type: does not use Lack of Transportation: No Lack of Food: Never True Current Housing: I Have Housing Concerned About Future Housing: No Difficulty Paying Gas/Electric Bills: No Difficulty Paying for Meds: No Currently Unemployed: No Education: High School Diploma/GED Difficulty w/ Childcare or Family Care: No Living arrangements: alone Occupation/Education: retired Gender identity (if verbalized by the patient): Female Sexual Orientation (if Verbalized by the Patient): Straight or Heterosexual Spiritual care concerns: No Exam Narrative: APPEARANCE: Uncomfortable appearing HEAD: Ecchymosis across forehead EYES: PERRLA/EOMI, conjunctivae clear. NOSE: Normal no drainage EARS:TMS clear with good light reflex. THROAT: Pharynx clear, no exudate. NECK: Supple. No adenopathy, no masses. RESPIRATORY: Airway patent, respirations nonlabored. Clear to auscultation bilaterally, no rales, rhonchi, wheezing. CARDIOVASCULAR: Regular rate and rhythm without murmurs rubs or gallops. ABDOMINAL: Soft, nontender, nondistended, normal bowel sounds MUSCULOSKELETAL: Left knee ecchymosis and effusion, right shoulder deformity NEURO: Alert. Cranial nerves II through XII intact. Good gait. Good coordination SKIN: Multiple areas of ecchymosis Course Vital Signs Vital signs: Vital Signs Temperature 98.1 F 06/28/25 16:07 Pulse Rate 92 06/28/25 16:07 Respiratory Rate 16 06/28/25 16:07 Blood Pressure 178/126 H 06/28/25 16:07 Pulse Oximetry 99 06/28/25 16:07 Temperature 98.1 F 06/28/25 16:07 Pulse Rate 92 06/28/25 16:07 Respiratory Rate 16 06/28/25 16:07 Blood Pressure 178/126 H 06/28/25 16:07 Pulse Oximetry 99 06/28/25 16:07 [facility] MDM Narrative Medical decision making narrative: 85-year-old female presents to the emergency department for evaluation after having a ground level fall with significant injury. Patient had negative CT head face neck chest abdomen pelvis. Patient had negative x-ray of the left knee but patient's right shoulder x-ray did show evidence of a comminuted displaced/dislocated humeral head fracture. Case was discussed with our orthopedic on-call and he did recommend transfer to the trauma center. I discussed the case with the ED physician at [facility] and patient was accepted as a transfer (Dr. Trujillo). Patient family were updated on the results of the workup and need for transfer to higher level of care. Patient was provided multiple rounds of Dilaudid for pain control. Patient was placed in a shoulder immobilizer prior to transport. Differential Diagnosis Differential Diagnosis: Subarachnoid hemorrhage, subdural hematoma, knee fracture, shoulder fracture, shoulder dislocation Lab Data MDM Lab Attestation statement: I personally reviewed the patient's lab results. 06/28/25 16:49 06/28/25 17:05 Labs: Lab Results 06/28/25 06/28/25 Range/Units 16:49 17:05 WBC 11.4 H (4.5-10.0) K/mm3 RBC 4.20 (4.2-5.4) M/mm3 Hgb 12.4 (12.0-15.0) g/dL Hct 37.4 (37.0-47.0) % MCV 89.0 (80-100) fl MCH 29.5 (26-34) pg MCHC 33.2 (32-36) g/dl RDW 12.4 (11.5-14.5) % Plt Count 256 (150-375) k/mm3 MPV 9.3 (7.4-10.4) fl Immature Gran % (Auto) 0.3 (0-0.5) % Neut % (Auto) 73.9 H (45.5-73.1) % Lymph % (Auto) 14.4 L (18.3-44.2) % Barren % (Auto) 9.3 H (2.6-8.5) % Eos % (Auto) 1.5 (0-4.4) % Baso % (Auto) 0.6 (0.2-1.2) % Lymph # (Auto) 1.63 (0.9-3.2) K/mm3 Barren # (Auto) 1.1 H (0.1-0.6) K/mm3 Eos # (Auto) 0.2 (0-0.3) K/mm3 Baso # (Auto) 0.1 (0.0-0.1) K/mm3 Abs Immat Gran (auto) 0.03 (0.00-0.031) K/mm3 Absolute Neuts (auto) 8.4 H (1.3-6.7) K/mm3 Absolute Nucleated RBC 0.000 (0.0-0.012) K/mm3 Nucleated RBC % 0.0 (0.0-0.2) % PT 13.1 (11.1-14.7) Seconds INR 1.0 APTT 25.7 (22.3-36.8) Seconds Sodium 129 L (137-145) mmol/L Potassium 4.4 (3.4-5.0) mmol/L Chloride 100 (98-107) mmol/L Carbon Dioxide 22 (22-30) mmol/L Anion Gap 7 (4-12) mmol/L BUN 16 (7-17) mg/dL Creatinine 1.03 H 1.10 (0.7-1.0) mg/dL Estim Creat Clear Calc 32 30 ml/min Estimated GFR 51 L 47 L (59 - ) Glucose 156 H (65-110) mg/dL Calcium 9.8 (8.4-10.2) mg/dL Total Bilirubin 0.5 (0.2-1.3) mg/dL AST 47 H (14-36) U/L ALT 50 H (6-35) U/L Alkaline Phosphatase 109 (38-126) U/L Total Protein 7.0 (6.3-8.2) g/dL Albumin 4.0 (3.5-5.1) g/dL Blood Type O Positive Antibody Screen Positive Antibody Identification Anti-Alpine Antigen Identification Pending JULIA, IgG Interpret Pending JULIA, Poly Interpret Pending JULIA, Complement Interp Pending Imaging Data Radiologist's impression: ITS Impressions Head CT 06/28/25 17:25 IMPRESSION: 1. No acute intracranial abnormality. 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 Recommend correlation with MRA of the brain. 3: Large frontal scalp hematoma. Head/Cervical Spine/Facial Bones CT 06/28/25 17:29 IMPRESSION: 1. No acute fracture. Chest/Abdomen/Pelvis CT 06/28/25 17:32 IMPRESSION: 1. No acute abnormality of the chest, abdomen or pelvis. 2: Small bilateral pulmonary nodules measuring 4 mm or less, likely benign. Recommend follow-up low dose CT chest in 12 months. 3: Left thyroid mass measuring 2.1 cm, indeterminate. Correlation with ultrasound recommended on a nonemergent basis. 4: Cholelithiasis. Humerus X-Ray 06/28/25 17:41 Impression: 1: Displaced, comminuted right humeral neck/head fracture with anterior dislocation. Shoulder X-Ray 06/28/25 17:41 Impression: 1: Displaced, comminuted right humeral neck/head fracture with anterior dislocation. Knee X-Ray 06/28/25 17:43 Impression: 1: No acute fracture. Elbow X-Ray 06/28/25 17:46 IMPRESSION: 1: NO ACUTE BONE OR JOINT ABNORMALITY IDENTIFIED. Discharge Plan Discharge Clinical Impression: Anterior shoulder dislocation, Closed fracture of shoulder, Head injury, Injury of knee Patient Disposition: Acute Care Hospital Condition: Serious Patient Language: Estonian Prescriptions: No Action aspirin 325 mg tablet 10 mg PO DAILY clopidogrel [Plavix] 75 mg tablet 75 mg PO DAILY diphenhydramine HCl [Benadryl] 25 mg capsule 25 mg PO QHS (DME) OneTouch Verio test strips Strip See Rx Instructions .Route Qty: 25 2RF Rx Instructions: Test twice weekly metformin 1,000 mg tablet See Rx Instructions .ROUTE .COMPLEX Qty: 90 1RF Dose Instruction: TAKE 1 TABLET BY MOUTH EVERY DAY Rx Instructions: resume on 03/30/2025 (DME) blood-glucose meter [Contour Next EZ Meter] Kit See Rx Instructions .Route Qty: 1 0RF Rx Instructions: check blood sugars 2xday triamcinolone acetonide 0.1 % cream 1 applic topical BID Qty: 454 1RF albuterol sulfate 90 mcg/actuation HFA aerosol inhaler See Rx Instructions .ROUTE .COMPLEX Qty: 6.7 0RF Dose Instruction: INHALE 1 PUFF BY MOUTH EVERY 4 HOURS NEEDED FOR SHORTNESS OF BREATH OR WHEEZING Rx Instructions: INHALE 1 PUFF BY MOUTH EVERY 4 HOURS NEEDED FOR SHORTNESS OF BREATH OR WHEEZING (DME) Contour Next Test Strips Strip See Rx Instructions .Route Qty: 50 1RF Rx Instructions: check blood sugar 2xday tizanidine 4 mg tablet See Rx Instructions .ROUTE .COMPLEX Qty: 90 1RF Dose Instruction: TAKE 1 TABLET BY MOUTH EVERY DAY AT BEDTIME NEEDED FOR MUSCLE SPASTICITY Rx Instructions: TAKE 1 TABLET BY MOUTH EVERY DAY AT BEDTIME NEEDED FOR MUSCLE SPASTICITY potassium chloride 10 mEq tablet extended release See Rx Instructions .ROUTE .COMPLEX Qty: 180 1RF Dose Instruction: TAKE 1 TABLET BY MOUTH TWICE A DAY Rx Instructions: TAKE 1 TABLET BY MOUTH TWICE A DAY montelukast 10 mg tablet See Rx Instructions .ROUTE .COMPLEX Qty: 90 1RF Dose Instruction: TAKE 1 TABLET BY MOUTH EVERY DAY Rx Instructions: TAKE 1 TABLET BY MOUTH EVERY DAY diltiazem HCl 180 mg capsule,extended release 24hr See Rx Instructions .ROUTE .COMPLEX Qty: 90 1RF Dose Instruction: TAKE 1 CAPSULE BY MOUTH EVERY DAY Rx Instructions: TAKE 1 CAPSULE BY MOUTH EVERY DAY ezetimibe 10 mg tablet See Rx Instructions .ROUTE .COMPLEX Qty: 90 1RF Dose Instruction: TAKE 1 TABLET (10 MG) BY MOUTH DAILY. Rx Instructions: TAKE 1 TABLET (10 MG) BY MOUTH DAILY. fluticasone propion-salmeterol [Advair HFA] 115-21 mcg/actuation HFA aerosol inhaler 2 puff inhalation BID Qty: 12 3RF Rx Instructions: administer with spacer lisinopril-hydrochlorothiazide 20-12.5 mg tablet See Rx Instructions .ROUTE .COMPLEX Qty: 90 1RF Dose Instruction: TAKE 1 TABLET BY MOUTH EVERY DAY Rx Instructions: TAKE 1 TABLET BY MOUTH EVERY DAY Follow-up/Referrals: Santi Ponce MD [Primary Care Provider, Family Practice]
[2025-06-28] MEDS: LACTATED RINGERS 1,000 ML 250 ML IV CONT (16:40)
[2025-06-28 16:56] LABS: Hematocrit 37.4 % (37.0-47.0); Hemoglobin 12.4 g/dL (12.0-15.0); Immature Granulocyte Percent A 0.3 % (0-0.5); Lymphocytes Absolute Auto 1.63 K/mm3 (0.9-3.2); Mean Corpuscular HGB Conc 33.2 g/dl (32-36); Mean Corpuscular Hemoglobin 29.5 pg (26-34); Mean Corpuscular Volume 89.0 fl (80-100); Nucleated Red Blood Cells Absolute Auto 0.000 K/mm3 (0.0-0.012); Nucleated Red Blood Cells Perc 0.0 % (0.0-0.2); Platelet Count Result 256 k/mm3 (150-375); Red Blood Count 4.20 M/mm3 (4.2-5.4); White Blood Count 11.4 K/mm3 (4.5-10.0)
[2025-06-28 17:05] LABS: Alanine Aminotransferase 50 U/L (6-35); Albumin Level 4.0 g/dL (3.5-5.1); Alkaline Phosphatase 109 U/L (38-126); Anion Gap 7 mmol/L (4-12); Aspartate Amino Transferase 47 U/L (14-36); Bilirubin,Total 0.5 mg/dL (0.2-1.3); Blood Urea Nitrogen 16 mg/dL (7-17); Calcium 9.8 mg/dL (8.4-10.2); Carbon Dioxide 22 mmol/L (22-30); Chloride 100 mmol/L (98-107); Estimated CRCL calculation 32 ml/min; Estimated Glomerular Filt Rate 51; Glucose 156 mg/dL (65-110); Potassium 4.4 mmol/L (3.4-5.0); Sodium 129 mmol/L (137-145); Total Protein 7.0 g/dL (6.3-8.2)
[2025-06-28 17:12] LABS: INR 1.0; Prothrombin Time 13.1 Seconds (11.1-14.7)
[2025-06-28 17:13] LABS: Partial Thromboplastin Time 25.7 Seconds (22.3-36.8)
[2025-06-28 17:22] LABS: Estimated CRCL calculation 30 ml/min; Estimated Glomerular Filt Rate 47
[2025-06-28] MEDS: HYDROmorphone HCL INJ (*CRX) 1 MG/ML SYR IV PUSH (18:59)
--- NOTE | 2025-06-28 23:30 | PC.NURSE ---
This RN just took over care for discharge to [facility].
[2025-06-28 23:32] VITALS: BP 178/126; PULSE 92; RESP 16; TEMP 36.7; O2SAT 99
== END 2025-06-28 23:35 | disposition short-term general hospital (02) ==
PROVIDERS: Emergency Provider Emergency Medicine; PCP Family Medicine
DX: S42.291A Other displaced fracture of upper end of right humerus, initial encounter for closed fracture (principal); S00.03XA Contusion of scalp, initial encounter; S80.02XA Contusion of left knee, initial encounter; Z87.891 Personal history of nicotine dependence; K80.20 Calculus of gallbladder without cholecystitis without obstruction; E07.9 Disorder of thyroid, unspecified; R91.8 Other nonspecific abnormal finding of lung field; R93.0 Abnormal findings on diagnostic imaging of skull and head, not elsewhere classified; W01.0XXA Fall on same level from slipping, tripping and stumbling without subsequent striking against object, initial encounter
CPT/HCPCS: 36415; 70450; 70486; 71260; 72125; 73030; 73060; 73070; 73560; 74177; 80053; 85025; 85610; 85730; 86850; 86880; 86900; 86901; 86902; 96361; 96374; 96375; 96376; 99285; A4565; J1171; J2270; J2405; J7120; Q9967